=== PATIENT | female | born 1995 | race Native Hawaiian/Other Pacific Islander ===

== ENCOUNTER 2018-01-01 22:43 | Emergency (ER) | payer OTHER ==
[2018-01-01 22:59] VITALS: RESP 16
[2018-01-01] MEDS ORDERED: Lactated Ringer's 1,000 ML IV STA (23:29)
--- NOTE | 2018-01-02 00:02 | ED PDOC ---
HPI: Fever Fever Onset Was: 01/01/18 What Antipyretic Given Prior To Arrival: Unknown Recent Sick Contacts: No Have you had recent travel within the past 21 days to any of the following countries: [place], [place], [place] or [place]?: No Symptoms Associated With Fever: Diarrhea, Other (decreased appeptite, body aches , headache, chills). denies: Vomiting Additional Comments: 22 y/o female presents to the ED with a fever. Patient states it began earlier today associated with nausea, decreased appeptite, body aches, headache, and chills. She claims to have had a stomach ache Thursday which she took medication for and today at 12 pm took medication to help with the fever. Denies any sick contacts or recent travel. PMD: None available Past Medical History Reviewed: Historical Data, Nursing Documentation, Vital Signs Vital Signs: Last Vital Signs Temp 99.7 F H 01/02/18 00:07 Pulse 111 H 01/01/18 22:53 Resp 16 01/01/18 22:53 BP 115/70 01/01/18 22:53 Pulse Ox 98 01/02/18 00:18 - Medical History PMH: No Chronic Diseases - Surgical History Surgical History: No Surg Hx - Family History Family History: States: No Known Family Hx - Social History Current smoker - smoking cessation education provided: No Ex-Smoker (has not smoked in the last 12 months): No Alcohol: None Drugs: Denies - Home Medications Home Medications: Ambulatory Orders Medication Instructions Recorded Acetaminophen [Tylenol Extra 1,000 mg PO Q6 PRN #100 tablet 01/02/18 Strength] Ibuprofen [Motrin Tab] 600 mg PO Q8 PRN #60 tab 01/02/18 Ondansetron ODT [Zofran ODT] 1 odt PO Q6 PRN #20 odt 01/02/18 - Allergies Allergies/Adverse Reactions: Allergies Allergy/AdvReac Type Severity Reaction Status Date / Time No Known Allergies Allergy Verified 01/01/18 22:53 Review of Systems ROS Statement: Except As Marked, All Systems Reviewed And Found Negative Constitutional: Positive for: Fever, Chills, Other (decreased appetite and body aches) Gastrointestinal: Positive for: Nausea Neurological: Positive for: Headache Physical Exam - Physical Exam Appears: Positive for: Well, No Acute Distress Head Exam: Positive for: ATRAUMATIC, NORMOCEPHALIC Skin: Positive for: Warm, Dry Eye Exam: Positive for: EOMI, PERRL ENT: Positive for: Pharynx Is (clear), Other (tacky mucous membranes) Neck: Positive for: Painless ROM, Supple (No meningismus) Cardiovascular/Chest: Positive for: Tachycardia (with regular rhythm). Negative for: Murmur Respiratory: Positive for: Normal Breath Sounds. Negative for: Rales, Wheezing , Respiratory Distress Gastrointestinal/Abdominal: Positive for: Soft. Negative for: Tenderness, Mass , Distended, Guarding Back: Positive for: Normal Inspection. Negative for: Decreased ROM Extremity: Positive for: Normal ROM. Negative for: Deformity Lymphatic: Negative for: Adenopathy Neurologic/Psych: Positive for: Alert. Negative for: Motor/Sensory Deficits - Laboratory Results Result Diagrams: 01/01/18 23:45 01/01/18 23:45 - ECG O2 Sat by Pulse Oximetry: 98 (RA) Pulse Ox Interpretation: Normal Medical Decision Making Medical Decision Making: Time: 22:53 Impression: Febrile Illness Differential Diagnosis: Virus, flu, strep throat, mono, UTI, or dehydration Initial Plan: * CMP * Lipase * Lact Acid, Plasma * UDip * Test * CBC * Tylenol 975 mg PO * Toradol 15 mg IVP * IV Fluids * Blood Culture * [place] Test * Influenza Test * Strep Test Labs demonstrate positive mono. No emergently significant abnormalities. DW pt findings and plan of care. Pt tolerating PO. Questions/Concerns answered/ addressed. Scribe Attestation: Documented by Areli Cook acting as a scribe for Julián Bearden MD. MD Cabreraibtiffany Attestation: All medical record entries made by the Scribe were at my direction and personally dictated by me. I have reviewed the chart and agree that the record accurately reflects my personal performance of the history, physical exam, medical decision making, and the department course for this patient. I have also personally directed, reviewed, and agree with the discharge instructions and disposition. Disposition - Clinical Impression Clinical Impression: Fever in adult, Mononucleosis - Disposition Referrals: [facility] [place] [Outside] [facility] [Outside] Disposition: Routine/Home Disposition Time: 00:57 Condition: IMPROVED Additional Instructions: FOLLOW UP WITH YOUR DOCTOR OR CLINIC OR [facility] IN 2-3 DAYS FOR REEVALUATION REST AND DRINK PLENTY OF HYDRATING FLUIDS NO CONTACT SPORTS Prescriptions: Acetaminophen [Tylenol Extra Strength] 1,000 mg PO Q6 PRN #100 tablet PRN Reason: FEVER OR PAIN Ibuprofen [Motrin Tab] 600 mg PO Q8 PRN #60 tab PRN Reason: Pain, Moderate (4-7) Ondansetron ODT [Zofran ODT] 1 odt PO Q6 PRN #20 odt PRN Reason: Nausea/Vomiting Instructions: Mononucleosis, Fever, Adult (DC) Forms: [facility] ED School/Work Excuse
[2018-01-02 00:07] LABS: BASO % 0.2 % (0.0-2.0); EOS % 0.1 % (0.0-4.0); HEMOGLOBIN 15.1 g/dL (12.0-16.0); LYMPH # 0.4 K/uL (1.0-4.3); LYMPH % 8.4 % (20.0-40.0); MEAN CELL VOLUME 98.8 fl (81.0-99.0); MEAN CORPUSCULAR HEMOGLOBIN 33.6 pg (27.0-31.0); MEAN PLATELET VOLUME 10.5 fl (7.2-11.7); MONO # 0.2 K/uL (0.0-0.8); MONO % 4.3 % (0.0-10.0); NEUT # 4.1 K/uL (1.8-7.0); NRBC % 0.1 % (0.0-0.0); PLATELET COUNT 152 K/uL (130-400); RBC 4.49 Mil/uL (3.80-5.20); RED CELL DISTRIBUTION WIDTH 12.6 % (11.5-14.5); WHITE BLOOD COUNT 4.8 K/uL (4.8-10.8)
[2018-01-02 00:16] LABS: GFR AFRICAN-AMERICAN > 60; GFR NON-AFRICAN AMERICAN > 60; LIPASE 78 U/L (23-300)
[2018-01-02 00:24] LABS: ALB/GLOB RATIO 1.3 (1.0-2.1); ALBUMIN 4.5 g/dL (3.5-5.0); ALT/SGPT 25 U/L (9-52); AST/SGOT 42 U/L (14-36); BLOOD UREA NITROGEN 10 mg/dl (7-17)
[2018-01-02 01:09] LABS: BANDS 1 % (0-2); LYMPHOCYTE 3 % (20-50); MONOCYTE 3 % (0-10); NEUTROPHIL 91 % (42-75); REACTIVE LYMPHOCYTES 2 % (0-0); TOTAL CELLS COUNTED 100
[2018-01-02 01:11] LABS: ANISOCYTOSIS SLIGHT; PLATELET ESTIMATE NORMAL (NORMAL)
[2018-01-02 01:16] VITALS: TEMP 100.1
[2018-01-02 01:34] VITALS: BP 112/67; PULSE 105
[2018-01-04 14:59] VITALS: O2SAT 98
== END 2018-01-02 01:19 | disposition home or self-care (01) ==
LOC: H.ER 22:43
DX: B27.90 Infectious mononucleosis, unspecified without complication (principal); R50.9 Fever, unspecified
CPT/HCPCS: 80053; 81025; 83605; 83690; 85025; 86308; 87040; 87070; 87430; 87804; 96361; 96374; 99284; J1885; J7120